=== PATIENT | male | born 1975 | race Caucasian/White ===

== ENCOUNTER 2018-03-30 21:58 | Emergency (ER) | payer BC, OTHER ==
--- NOTE | 2018-03-30 22:41 | EDM.PDOC ---
ED HPI GENERAL MEDICAL PROBLEM - General Stated Complaint: PAIN MOUTH Time Seen by Provider: 03/30/18 22:41 Source of Information: Reports: Patient - History of Present Illness INITIAL COMMENTS - FREE TEXT/NARRATIVE: HISTORY AND PHYSICAL: History of present illness: [Patient was removing the tire from a pickup and was struck in the face by priY bar dentition is intact however has a laceration on his upper lip it does cross the [place] border angular in shape 2.5 cm, the crossing of the [place] border is linear after the [place] border it takes a right angle into his mustache for 1.5 cm No loss of consciousness Review of systems: As per history of present illness and below otherwise all systems reviewed and negative. Past medical history: As per history of present illness and as reviewed below otherwise noncontributory. Surgical history: As per history of present illness and as reviewed below otherwise noncontributory. Social history: No reported history of drug or alcohol abuse. Family history: As per history of present illness and as reviewed below otherwise noncontributory. Physical exam: HEENT: Atraumatic, normocephalic, pupils reactive, negative for conjunctival pallor or scleral icterus, mucous membranes moist, throat clear, neck supple, nontender, trachea midline. Dentition intact 2.5 cm angular laceration Lungs: Clear to auscultation, breath sounds equal bilaterally, chest nontender. Heart: S1S2, regular, negative for clicks, rubs, or JVD. Abdomen: Soft, nondistended, nontender. Negative for masses or hepatosplenomegaly. Negative for costovertebral tenderness. Pelvis: Stable nontender. Genitourinary: Deferred. Rectal: Deferred. Extremities: Atraumatic, negative for cords or calf pain. Neurovascular unremarkable. Neuro: Awake, alert, oriented. Cranial nerves II through XII unremarkable. Cerebellum unremarkable. Motor and sensory unremarkable throughout. Exam nonfocal. Diagnostics: [Clinical] Therapeutics: [Tetanus status is updated CleocIN 150 mg by mouth 3 times a day #30 no refill Lidocaine Sutures] Prolene interrupted #5-0 #3 There was Barnwell involvement there is excellent approximation of the wound at this time approves no complication no complaint Sutures out 5 days Impression: [Laceration upper lip, vermilion involvement] Definitive disposition and diagnosis as appropriate pending reevaluation and review of above. right upper lip Pain Score (Numeric/FACES): 1 - Related Data Allergies Allergy/AdvReac Type Severity Reaction Status Date / Time amoxicillin Allergy Hives Verified 03/30/18 22:53 Penicillins Allergy Rash Verified 07/30/15 08:05 Home Meds: Home Meds . [No Known Home Meds] 03/30/18 [History] ED ROS GENERAL - Review of Systems Review Of Systems: ROS reveals no pertinent complaints other than HPI. ED EXAM, GENERAL - Physical Exam Exam: See Below Course - Vital Signs Last Recorded V/S: Last Vital Signs Temp 99.0 F 03/30/18 22:41 Pulse 94 03/30/18 22:41 Resp 18 03/30/18 22:41 BP 161/92 H 03/30/18 22:41 Pulse Ox 96 03/30/18 22:41 - Orders/Labs/Meds Orders: Active Orders 24 hr Category Date Time Status Vaccines to be Administered [RC] PER UNIT ROUTINE Care 03/30/18 22:43 Active Meds: Medications Discontinued Medications Generic Name Dose Route Start Last Admin Trade Name [place] PRN Reason Stop Dose Admin Clindamycin HCl 150 mg 03/30/18 22:43 03/30/18 22:53 Cleocin PO 03/30/18 22:44 150 mg ONETIME ONE Administration Diphtheria/Tetanus/Acell Pertussis 0.5 ml 03/30/18 22:43 03/30/18 22:54 Adacel IM 03/30/18 22:44 0.5 ml .ONCE ONE Administration Lidocaine HCl 20 ml 03/30/18 22:44 03/30/18 22:53 Xylocaine 1% INJECT 03/30/18 22:45 20 ml ONETIME ONE Administration Departure - Departure Time of Disposition: 00:46 Disposition: Home, Self-Care 01 Condition: Good Clinical Impression: Laceration - Discharge Information Referrals: PCP,None [Primary Care Provider] - Additional Instructions: Medication as prescribed Saltwater swish and spit 2-3 times daily reTurn if redness warmth or pus drainage should this develop Otherwise standard wound care as instructed Sutures out in 5 days The following information is given to patients seen in the emergency department who are being discharged to home. This information is to outline your options for follow-up care. We provide all patients seen in our emergency department with a follow-up referral. The need for follow-up, as well as the timing and circumstances, are variable depending upon the specifics of your emergency department visit. If you don't have a primary care physician on staff, we will provide you with a referral. We always advise you to contact your personal physician following an emergency department visit to inform them of the circumstance of the visit and for follow-up with them and/or the need for any referrals to a consulting specialist. The emergency department will also refer you to a specialist when appropriate. This referral assures that you have the opportunity for follow-up care with a specialist. All of these measure are taken in an effort to provide you with optimal care, which includes your follow-up. Under all circumstances we always encourage you to contact your private physician who remains a resource for coordinating your care. When calling for follow-up care, please make the office aware that this follow-up is from your recent emergency room visit. If for any reason you are refused follow-up, please contact the [facility] emergency department at and asked to speak to the emergency department charge nurse. - My Orders Last 24 Hours: My Active Orders 03/30/18 22:43 Vaccines to be Administered [RC] PER UNIT ROUTINE - Assessment/Plan Last 24 Hours: My Active Orders 03/30/18 22:43 Vaccines to be Administered [RC] PER UNIT ROUTINE
[2018-03-30] MEDS ORDERED: Diphtheria,Pertussis(Acell),Tetanus Vaccine 0.5 ML Syringe IM ONE (22:43)
[2018-03-30] MEDS ORDERED: Clindamycin HCl 150 MG Cap PO ONE (22:43)
[2018-03-30] MEDS ORDERED: Lidocaine 1% 20 ML MDV INJECT ONE (22:44)
== END 2018-03-31 00:55 | disposition home or self-care (01) ==
LOC: MW.ED 21:58
DX: S01.511A Laceration without foreign body of lip, initial encounter (principal); Z88.0 Allergy status to penicillin; Z88.1 Allergy status to other antibiotic agents; Z23 Encounter for immunization; W22.8XXA Striking against or struck by other objects, initial encounter
CPT/HCPCS: 12011; 90471; 90715; 99282; A9270; 99283

== ENCOUNTER 2023-08-25 19:07 | Emergency (ER) | payer BC | END 2023-08-25 21:03 | disposition home or self-care (01) | LOC: MW.ED 19:07 | DX: S86.892A Other injury of other muscle(s) and tendon(s) at lower leg level, left leg, initial encounter (principal); Z88.0 Allergy status to penicillin; Z79.899 Other long term (current) drug therapy; X50.1XXA Overexertion from prolonged static or awkward postures, initial encounter | CPT/HCPCS: 73562-26-LT; 73562-LT; 99283 ==